=== PATIENT | male | born 1960 | race Hispanic/Latino ===

== ENCOUNTER 2018-05-05 06:16 | Inpatient (IN) | payer MEDICARE ==
[2018-04-29 10:55] VITALS: BMI 35.4
[2018-05-05] MEDS ORDERED: Rocuronium 10 mg/ml (5 ml) ONE ×2 (07:03→09:07)
[2018-05-05] MEDS ORDERED: Propofol 10 mg/ml Inj (20 ML) ONE ×3 (07:03→07:58)
[2018-05-05] MEDS ORDERED: Lidocaine 4% (Laryng-O-Jet) Kit MM ONE (07:04)
[2018-05-05] MEDS ORDERED: Succinylcholine 200 mg/10 ml Inj IV ONE (07:04)
[2018-05-05] MEDS ORDERED: Phenylephrine 10 mg/ml Inj ONE ×2 (07:04→07:10)
[2018-05-05] MEDS ORDERED: Dexamethasone 4 mg/1 ml ONE (07:12)
--- NOTE | 2018-05-05 07:14 | CP.PCM.CON ---
History of Present Illness - History of Present Illness History of Present Illness: Neurosurgical consult: Dr. Rodriguez Patient 58 y/o male with PMH of NIDDM, HTN and liver transplant presents for elective lumbar laminotomy. Patient has had chronic lower back pain for many years which has failed conservative management. The pain affects his daily activities. Pain is localized to lower back without radiation of pain to LE. He admits to numbness/tingling to feet related to his DM. He has had prior lumbar surgery in 1992 and 1999 following injuries. He denies saddle paresthesias/bowel or bladder incontinence/CP/SOB/N/V/D/fever/melena/dysuria. Review of Systems - Review of Systems All systems: reviewed and no additional remarkable complaints except Review of Systems: as per HPI Past Patient History - Past Medical History & Family History Past Medical History?: Yes Past Family History: Reviewed and not pertinent - Past Social History Cigar Use: Yes Alcohol: Other (former ETOH abuse) Drugs: Denies - CARDIAC Hx Cardiac Disorders: Yes Hx Hypercholesterolemia: Yes Hx Hypertension: Yes - PULMONARY Hx Respiratory Disorders: No - NEUROLOGICAL Hx Neurological Disorder: No - HEENT Hx HEENT Problems: No - RENAL Hx Chronic Kidney Disease: No - ENDOCRINE/METABOLIC Hx Endocrine Disorders: Yes Hx Diabetes Mellitus Type 2: Yes - HEMATOLOGICAL/ONCOLOGICAL Hx Blood Disorders: No - INTEGUMENTARY Hx Dermatological Problems: No - MUSCULOSKELETAL/RHEUMATOLOGICAL Hx Musculoskeletal Disorders: Yes Hx Arthritis: Yes (general) - GASTROINTESTINAL Hx Gastrointestinal Disorders: No - GENITOURINARY/GYNECOLOGICAL Hx Genitourinary Disorders: No - PSYCHIATRIC Hx Psychophysiologic Disorder: No - SURGICAL HISTORY Hx Surgeries: Yes Hx Appendectomy: Yes Hx Cataract Extraction: Yes (bilateral) Hx Cholecystectomy: Yes Hx Eye Surgery: Yes Hx Musculoskeletal Surgery: Yes (left wrist fx) Hx Orthopedic Surgery: Yes (total left hip.rita knees replaced) Other/Comment: liver transplant - ANESTHESIA Hx Anesthesia: Yes Hx Anesthesia Reactions: No Has any member of the family had a problem w/ anesthesia?: No Meds Allergies/Adverse Reactions: Allergies Allergy/AdvReac Type Severity Reaction Status Date / Time No Known Allergies Allergy Verified 05/05/18 06:45 - Medications Medications: as per med rec Physical Exam - Constitutional Appears: Well, No Acute Distress - Head Exam Head Exam: ATRAUMATIC, NORMOCEPHALIC - Eye Exam Eye Exam: EOMI, Normal appearance, PERRL - ENT Exam ENT Exam: Mucous Membranes Moist - Respiratory Exam Respiratory Exam: NORMAL BREATHING PATTERN - Cardiovascular Exam Cardiovascular Exam: +S1, +S2 - GI/Abdominal Exam GI & Abdominal Exam: Soft. absent: Tenderness Additional comments: surgical scar well healed - Back Exam Additional comments: lumbar midline tenderness old midline scar well healed, no other lesions/masses CN all intact neg clonus neg SLR b/l supine gross NVI distally - Neurological Exam Neurological exam: Alert, Oriented x3 - Psychiatric Exam Psychiatric exam: Normal Affect, Normal Mood - Skin Skin Exam: Normal Color, Warm Results - Labs Result Diagrams: 05/05/18 07:20 Assessment & Plan (1) Lumbar spondylosis Assessment and Plan: -OR today for L2-3 lumbar laminotomy and fusion -NPO -Risks/benefits/alternatives explained to patient who understands and agrees to proceed with above procedure -above d/w Dr. Rodriguez in agreement Status: Acute
[2018-05-05] MEDS ORDERED: Bupivacaine 0.5% Inj(30mL) ONE (07:16)
[2018-05-05] MEDS ORDERED: APROTININ/FIBRINOGEN(TISSEEL) ONE (07:16)
[2018-05-05] MEDS ORDERED: Lidocaine 1% w Epi 1:100,000 Inj ONE (07:16)
[2018-05-05] MEDS ORDERED: methylPREDNISolone Depo 80 mg/ml Inj ONE (07:46)
[2018-05-05 07:49] LABS: BASO % 0.5 % (0.0-2.0); EOS # 0.1 K/uL (0.0-0.7); HEMOGLOBIN 12.9 g/dL (12.0-18.0); LYMPH # 0.6 K/uL (1.0-4.3); LYMPH % 7.9 % (20.0-40.0); MEAN CELL VOLUME 85.1 fl (80.0-94.0); MEAN CORPUSCULAR HEMOGLOBIN 27.9 pg (27.0-31.0); MEAN CORPUSCULAR HGB CONC 32.7 g/dL (33.0-37.0); MEAN PLATELET VOLUME 9.6 fl (7.2-11.7); MONO # 0.5 K/uL (0.0-0.8); MONO % 6.8 % (0.0-10.0); NEUT # 6.2 K/uL (1.8-7.0); NEUT % 83.8 % (50.0-75.0); NRBC % 0.1 % (0.0-0.0); PLATELET COUNT 148 K/uL (130-400); RBC 4.64 Mil/uL (4.40-5.90); RED CELL DISTRIBUTION WIDTH 15.5 % (11.5-14.5); WHITE BLOOD COUNT 7.4 K/uL (4.8-10.8)
[2018-05-05] MEDS ORDERED: Lactated Ringer's 1,000 ML IV ONE ×2 (07:50→08:00)
[2018-05-05] MEDS ORDERED: Midazolam 2 MG/2 ML VIAL ONE (07:54)
[2018-05-05] MEDS ORDERED: Neostigmine 1:1000 (1 mg/ml) Inj ONE (09:10)
[2018-05-05 09:13] LABS: LYMPHOCYTE 9 % (20-50); MONOCYTE 9 % (0-10); NEUTROPHIL 80 % (42-75); REACTIVE LYMPHOCYTES 2 % (0-0); TOTAL CELLS COUNTED 100
[2018-05-05 09:15] LABS: ANISOCYTOSIS SLIGHT; PLATELET ESTIMATE NORMAL (NORMAL)
[2018-05-05] MEDS ORDERED: Bupivacaine 0.5% 50 ML IJ ONE (09:25)
[2018-05-05] MEDS ORDERED: Sodium Chloride 0.9% 1,000 ML IV SCH (09:45)
[2018-05-05] MEDS: HYDROmorphone 0.5 mg/0.5 ml ISec IVP PRN ×3 (10:20→11:45)
[2018-05-05] MEDS: Lactated Ringer's 1,000 ML IV SCH ×2 (10:35→20:41)
--- NOTE | 2018-05-05 11:19 | PCM.SURG1 ---
Surgeon's Initial Post Op Note - Surgeon's Notes Surgeon: Jaret Rodriguez MD Casting Machine Adjuster: Frank Anthony PA-C Type of Anesthesia: General Endo Anesthesia Administered By: Sonny Lynn MD Pre-Operative Diagnosis: Lumbar spondylosis Operative Findings: L2-3 lumbar spondylosis Post-Operative Diagnosis: as above Operation Performed: L2-3 laminectomy with instrumental fusion Specimen/Specimens Removed: none Estimated Blood Loss: EBL {In ML}: 30 Blood Products Given: N/A Drains Used: Ted Hutchins (x2) Post-Op Condition: Good Date of Surgery/Procedure: 05/05/18 Time of Surgery/Procedure: 07:50
--- NOTE | 2018-05-05 15:12 | CP.PCM.HP ---
History of Present Illness - History of Present Illness History of Present Illness: 58 y/o M is admitted for evaluation and management S/P L2-3 laminectomy with instrumental fusion. Pt was seen and examined by bedside with Dr Gutierrez. Pt reports feeling well. Pt denies chills, chest pain, SOB, abdominal pain, dysuria. NKDA PMHx: HTN, vitamin D deficiency, HLD, liver transplant, DM PSHx: appendectomy, b/l cataracts removal, cholecystectomy, L wrist fracture repair, total L hip replacement and b/l knee replacement Present on Admission - Present on Admission Any Indicators Present on Admission: No Review of Systems - Constitutional Constitutional: absent: Chills, Fever - EENT Eyes: absent: Change in Vision Nose/Mouth/Throat: absent: Epistaxis, Nasal Congestion, Sore Throat, Neck Pain - Cardiovascular Cardiovascular: absent: Chest Pain, Palpitations - Respiratory Respiratory: absent: Cough, Dyspnea, Hemoptysis - Gastrointestinal Gastrointestinal: absent: Abdominal Pain, Nausea, Vomiting - Genitourinary Genitourinary: absent: Dysuria, Flank Pain, Hematuria Past Patient History - Past Medical History & Family History Past Medical History?: Yes - Past Social History Smoking Status: Former Smoker - CARDIAC Hx Cardiac Disorders: Yes Hx Hypercholesterolemia: Yes Hx Hypertension: Yes - PULMONARY Hx Respiratory Disorders: No - NEUROLOGICAL Hx Neurological Disorder: No - HEENT Hx HEENT Problems: No - RENAL Hx Chronic Kidney Disease: No - ENDOCRINE/METABOLIC Hx Endocrine Disorders: Yes Hx Diabetes Mellitus Type 2: Yes - HEMATOLOGICAL/ONCOLOGICAL Hx Blood Disorders: No - INTEGUMENTARY Hx Dermatological Problems: No - MUSCULOSKELETAL/RHEUMATOLOGICAL Hx Musculoskeletal Disorders: Yes Hx Arthritis: Yes (general) - GASTROINTESTINAL Hx Gastrointestinal Disorders: No - GENITOURINARY/GYNECOLOGICAL Hx Genitourinary Disorders: No - PSYCHIATRIC Hx Psychophysiologic Disorder: No - SURGICAL HISTORY Hx Surgeries: Yes Hx Appendectomy: Yes Hx Cataract Extraction: Yes (bilateral) Hx Cholecystectomy: Yes Hx Eye Surgery: Yes Hx Musculoskeletal Surgery: Yes (left wrist fx) Hx Orthopedic Surgery: Yes (total left hip.rita knees replaced) - ANESTHESIA Hx Anesthesia: Yes Hx Anesthesia Reactions: No Has any member of the family had a problem w/ anesthesia?: No Meds Allergies/Adverse Reactions: Allergies Allergy/AdvReac Type Severity Reaction Status Date / Time No Known Allergies Allergy Verified 05/05/18 06:45 Physical Exam - Constitutional Appears: Well, No Acute Distress - Head Exam Head Exam: ATRAUMATIC, NORMAL INSPECTION - Eye Exam Eye Exam: EOMI - ENT Exam ENT Exam: Mucous Membranes Dry - Neck Exam Neck exam: Positive for: Full Rom. Negative for: Lymphadenopathy, Meningismus - Respiratory Exam Respiratory Exam: NORMAL BREATHING PATTERN. absent: Decreased Breath Sounds, Rhonchi, Wheezes - Cardiovascular Exam Cardiovascular Exam: +S1, +S2 - GI/Abdominal Exam GI & Abdominal Exam: Normal Bowel Sounds, Soft. absent: Guarding, Hernia, Tenderness - Extremities Exam Extremities exam: Negative for: calf tenderness - Back Exam Back exam: absent: CVA tenderness (L), CVA tenderness (R) - Neurological Exam Neurological exam: Alert, Oriented x3 Results - Vital Signs Recent Vital Signs: Last Vital Signs Temp 99.5 F 05/05/18 12:35 Pulse 71 05/05/18 13:05 Resp 19 05/05/18 13:05 BP 123/54 L 05/05/18 13:05 Pulse Ox 96 05/05/18 13:05 - Labs Result Diagrams: 05/05/18 07:20 Labs: Laboratory Results - last 24 hr 05/05/18 05/05/18 05/05/18 07:15 07:20 07:20 WBC 7.4 RBC 4.64 Hgb 12.9 Hct 39.5 MCV 85.1 MCH 27.9 MCHC 32.7 L RDW 15.5 H Plt Count 148 MPV 9.6 Neut % (Auto) 83.8 H Lymph % (Auto) 7.9 L [place] % (Auto) 6.8 Eos % (Auto) 1.0 Baso % (Auto) 0.5 Neut # (Auto) 6.2 Lymph # (Auto) 0.6 L [place] # (Auto) 0.5 Eos # (Auto) 0.1 Baso # (Auto) 0.0 Neutrophils % (Manual) 80 H Lymphocytes % (Manual) 9 L Reactive Lymphs % 2 H Monocytes % (Manual) 9 Platelet Estimate Normal Anisocytosis (manual) Slight POC Glucose (mg/dL) 191 H Blood Type A POSITIVE Blood Type Confirm Antibody Screen Negative BBK History Checked No verified bt 05/05/18 10:00 WBC RBC Hgb Hct MCV MCH MCHC RDW Plt Count MPV Neut % (Auto) Lymph % (Auto) [place] % (Auto) Eos % (Auto) Baso % (Auto) Neut # (Auto) Lymph # (Auto) [place] # (Auto) Eos # (Auto) Baso # (Auto) Neutrophils % (Manual) Lymphocytes % (Manual) Reactive Lymphs % Monocytes % (Manual) Platelet Estimate Anisocytosis (manual) POC Glucose (mg/dL) Blood Type Blood Type Confirm A POSITIVE Antibody Screen BBK History Checked Assessment & Plan - Assessment and Plan (Free Text) Assessment: 58 y/o M is admitted for evaluation and management S/P L2-3 laminectomy with instrumental fusion. PLAN: --Stable --Home meds resumed --Orthopedic Surgery ob board, Dr Rodriguez. --Continue management as ordered. Case discussed with Dr Gutierrez. - Date & Time Date: 05/05/18 Time: 15:15
--- NOTE | 2018-05-05 15:46 | RAD ---
Date of service: 05/05/2018 PROCEDURE: Intraoperative Fluoroscopy. The HISTORY: PLIF FINDINGS: Fluoroscopic assistance was provided. Fluoroscopy time = 88.8 sec. Radiation dose = 71.89 mGy. Please refer to the operative report from LYLE Soni.
[2018-05-05] MEDS: ceFAZolin 2 GM in Sodium Chloride 0.9% 100 ML IVPB SCH (17:00)
[2018-05-05] MEDS ORDERED: Insulin Regular 100 units/ml SC STA (17:37)
[2018-05-05] MEDS: Insulin Regular 100 units/ml SC SCH (23:25)
[2018-05-06] MEDS: ceFAZolin 2 GM in Sodium Chloride 0.9% 100 ML IVPB SCH ×3 (00:44→18:21)
[2018-05-06] MEDS: Albuterol-Ipratrop 3 mg / 0.5 (3 ml) UD INH SCH ×4 (01:44→19:18)
--- NOTE | 2018-05-06 01:50 | OP ---
PROCEDURE DATE: 05/05/2018 PREOPERATIVE DIAGNOSIS: Lumbar spondylosis at L2-L3. POSTOPERATIVE DIAGNOSIS: Lumbar spondylosis at L2-L3. PROCEDURE: L2-L3 lumbar laminectomy, L2-L3 pedicle screw fixation and instrumentation using spinal element screws, L2-L3 posterolateral fusion. Fluoroscope has been used. Microscope has been used. SURGEON: Jaret Rodriguez MD FARM SPECIALIST: Frank Anthony, physician physician's assistant, who helped me to perform the surgery, stayed throughout the case from beginning to the end. DESCRIPTION OF PROCEDURE: The patient was brought to the operating room and after general endotracheal anesthesia, placed in the prone position on a Ted table. Care was taken to protect all pressure points. Back of the lumbar area was thoroughly prepped and draped in standard sterile manner after marking the skin incision for lumbar laminectomy at L2-L3. After prepping and draping the area, the skin had been incised. Bleeding skin had been controlled with bipolar foreign diplomat. Using a Bovie foreign diplomat, paraspinal muscles had been detached attachments of spinous process and lamina of L2-L3 bilaterally. Deep retractor had been applied. Once the transverse process and facets had been exposed by using a potential landmark, point of entry had been noted for the L2 and L3. Initially a K-wire and later a drill had been used in order to enter the pedicles of L2 and L3, and bone was found to be soft. Polyaxial titanium screws had been placed in the pedicles of L2-L3. Titanium rods had been placed. Cap nuts had been used now to secure them. After that, the spinous process of L2 and L3 had been removed. By using a high speed drill, the lamina had been drilled to actual thickness. By using a fine Kerrison punch, thinned out the lamina and medial part of the facets, ligamentum flavum had been removed decomposing this area. Lateral aspect of the facet joint and transverse process had been decorticated. Demineralized bone was placed in the area achieving a posterolateral fusion. After that, hemostasis was best achieved. Ted drain was placed in the wound and brought out through a separate stab neck skin incision. Muscles and fascia were closed with 1 Vicryl, subcutaneous tissue with 3-0 Vicryl and the skin had been with intradermal 3-0 Vicryl stitches. The patient tolerated the procedure. After the procedure, he was mobilized to the recovery room in stabilized condition. Jaret Rodriguez MD
[2018-05-06] MEDS: guaiFENesin DM 200 mg-20 mg/10 ml UD PO SCH ×4 (05:35→21:40)
[2018-05-06] MEDS: Lactated Ringer's 1,000 ML IV SCH (05:45)
[2018-05-06 06:27] LABS: HEMOGLOBIN 11.3 g/dL (12.0-18.0); MEAN CELL VOLUME 84.3 fl (80.0-94.0); MEAN CORPUSCULAR HEMOGLOBIN 27.9 pg (27.0-31.0); MEAN CORPUSCULAR HGB CONC 33.1 g/dL (33.0-37.0); RBC 4.06 Mil/uL (4.40-5.90); WHITE BLOOD COUNT 8.7 K/uL (4.8-10.8)
[2018-05-06 06:32] LABS: BLOOD UREA NITROGEN 24 mg/dl (9-20); CALCIUM 7.8 mg/dL (8.4-10.2); GFR NON-AFRICAN AMERICAN > 60
[2018-05-06] MEDS: Insulin Regular 100 units/ml SC SCH ×4 (08:01→22:00)
--- NOTE | 2018-05-06 08:54 | CP.PCM.PN ---
Subjective - Date & Time of Evaluation Date of Evaluation: 05/06/18 Time of Evaluation: 08:47 - Subjective Subjective: Patient states pain is controlled. He says he is having some pain in his legs. He wants to get out of bed. Patricia CP/SOB/dizziness. Objective - Vital Signs/Intake and Output Vital Signs (last 24 hours): Temp Pulse Resp BP Pulse Ox 98.4 F 67 20 134/81 96 05/06/18 05:00 05/06/18 08:41 05/06/18 05:00 05/06/18 08:41 05/06/18 05:00 Intake and Output: 05/06/18 05/06/18 06:59 18:59 Intake Total 1600 Output Total 1610 Balance -10 - Medications Medications: Current Medications Albuterol/Ipratropium (Duoneb 3 Mg/0.5 Mg (3 Ml) Ud) 3 ml INH RQ6 [facility] Last Admin: 05/06/18 07:22 Dose: 3 ml Amlodipine Besylate (Norvasc) 5 mg PO DAILY [facility] Last Admin: 05/06/18 08:41 Dose: 5 mg Aspirin (Ecotrin) 81 mg PO DAILY [facility] Last Admin: 05/06/18 08:41 Dose: 81 mg Atorvastatin Calcium (Lipitor) 20 mg PO DAILY [facility] Last Admin: 05/06/18 08:41 Dose: 20 mg Carvedilol (Coreg) 25 mg PO DAILY [facility] Last Admin: 05/06/18 08:40 Dose: 25 mg Cyclobenzaprine HCl (Flexeril) 10 mg PO Q8 PRN PRN Reason: Muscle spasm Docusate Sodium (Colace) 100 mg PO BID [facility] Last Admin: 05/06/18 08:40 Dose: 100 mg Fludrocortisone Acetate (Florinef) 0.1 mg PO DAILY [facility] Last Admin: 05/06/18 08:41 Dose: 0.1 mg Guaifenesin/Dextromethorphan (Robitussin Dm) 10 ml PO Q6 [facility] Last Admin: 05/06/18 05:35 Dose: 10 ml Hydromorphone HCl (Dilaudid 0.2 Mg/Ml [employer]) 0 mg IV PRN PRN; Protocol PRN Reason: Pain, moderate (4-7) Last Admin: 05/05/18 22:01 Dose: 6 mg Sodium Chloride (Sodium Chloride 0.9%) 1,000 mls @ 100 mls/hr IV .Q10H [facility] Stop: 05/06/18 09:32 Last Admin: 05/06/18 05:44 Dose: 100 mls/hr Lactated Ringer's (Lactated Ringer's) 1,000 mls @ 100 mls/hr IV .Q10H [facility] Last Admin: 05/06/18 05:45 Dose: Not Given Insulin Human Regular (Humulin R) 0 units SC ACHS [facility]; Protocol Last Admin: 05/06/18 08:01 Dose: 3 u Lactulose (Enulose) 20 gm PO DAILY [facility] Last Admin: 05/06/18 08:46 Dose: Not Given Mycophenolate Mofetil (Cellcept) 500 mg PO BID [facility] Last Admin: 05/06/18 08:40 Dose: 500 mg Ondansetron HCl (Zofran Inj) 4 mg IVP ONCE PRN PRN Reason: Nausea/Vomiting Pregabalin (Lyrica) 200 mg PO DAILY [facility] Sitagliptin Phosphate (Januvia) 100 mg PO DAILY [facility] Last Admin: 05/06/18 08:41 Dose: 100 mg Tacrolimus (Prograf Cap) 1 mg PO Q12 [facility] Last Admin: 05/06/18 08:42 Dose: 1 mg Zolpidem Tartrate (Ambien) 10 mg PO HS [facility] Last Admin: 05/06/18 02:11 Dose: 10 mg - Labs Labs: 05/06/18 05:40 05/06/18 05:40 - Back Exam Additional comments: 20cc overnight both JPs 20/50 20/65 20/60 basically q2-3 hours after received from pACU, drains left intact no drainage on dressing no erythema +ROM ankle/toes,sensation intact BLE, calves soft NT neg homans Assessment and Plan (1) Lumbar spondylosis Assessment & Plan: POD#1 s/p L2/L3 lumbar laminectomy with pedicle screw fixation and fusion Sherif left intact PT/OT encourage OOB plan for d/c SHERIF when drainage decreases d/w Dr. Rodriguez, agrees with above Status: Acute
[2018-05-06] MEDS ORDERED: oxyCODONE 10 mg Immediate Release Tab PO PRN ×2 (11:39→15:12)
--- NOTE | 2018-05-06 13:14 | PQF ---
PROVIDER RESPONSE TEXT: Other, Pt was NPO due to upcoming surgery, did not take his medications. REVIEWER QUERY TEXT: Diabetic Associated Manifestations Please specify any manifestations associated / due to diabetes Such as: -- Diabetes with hyperglycemia -- Diabetes with hypoglycemia -- Diabetes with renal manifestation -- Diabetes with neurologic manifestation -- Diabetes with ophthalmic manifestation -- Diabetes with peripheral circulatory manifestation -- Other, please specify The patient's Clinical Indicators include: Accuchecks monitored with insulin coverage: 191, 184, 268, 224, 204, 212. Medication: Francisuvranjith Query created by: Cassie Villanueva on 05/06/2018 8:24 AM Electronically signed by: Gamaliel Babin 05/06/2018 1:11 PM
[2018-05-06] MEDS ORDERED: oxyCODONE 5 mg Immediate Release Tab PO STA (15:07)
--- NOTE | 2018-05-06 16:34 | CP.PCM.PN ---
Subjective - Date & Time of Evaluation Date of Evaluation: 05/06/18 Time of Evaluation: 11:25 - Subjective Subjective: 58 y/o M was seen and examined at bedside with Dr Gutierrez. Pt reports feeling well, only complains of abdominal distension; however, declines PO Lactulose and would like to wait to have a BM by himself. Pt afebrile, tolerating PO with NO acute events overnight. --Pt with Hx of chronic pain complained of back pain after oxycodone intake. Pt reports he takes 15mg Oxycontin BID at home. Objective - Vital Signs/Intake and Output Vital Signs (last 24 hours): Temp Pulse Resp BP Pulse Ox 98.4 F 67 20 134/81 96 05/06/18 09:00 05/06/18 09:00 05/06/18 09:00 05/06/18 09:00 05/06/18 09:00 Intake and Output: 05/06/18 05/06/18 06:59 18:59 Intake Total 1600 Output Total 1610 Balance -10 - Medications Medications: Current Medications Albuterol/Ipratropium (Duoneb 3 Mg/0.5 Mg (3 Ml) Ud) 3 ml INH RQ6 [facility] Last Admin: 05/06/18 14:44 Dose: 3 ml Amlodipine Besylate (Norvasc) 5 mg PO DAILY [facility] Last Admin: 05/06/18 08:41 Dose: 5 mg Aspirin (Ecotrin) 81 mg PO DAILY [facility] Last Admin: 05/06/18 08:41 Dose: 81 mg Atorvastatin Calcium (Lipitor) 20 mg PO DAILY [facility] Last Admin: 05/06/18 08:41 Dose: 20 mg Carvedilol (Coreg) 25 mg PO DAILY [facility] Last Admin: 05/06/18 08:40 Dose: 25 mg Cyclobenzaprine HCl (Flexeril) 10 mg PO Q8 PRN PRN Reason: Muscle spasm Last Admin: 05/06/18 15:09 Dose: 10 mg Docusate Sodium (Colace) 100 mg PO BID [facility] Last Admin: 05/06/18 08:40 Dose: 100 mg Fludrocortisone Acetate (Florinef) 0.1 mg PO DAILY [facility] Last Admin: 05/06/18 08:41 Dose: 0.1 mg Guaifenesin/Dextromethorphan (Robitussin Dm) 10 ml PO Q6 [facility] Last Admin: 05/06/18 09:12 Dose: 10 ml Lactated Ringer's (Lactated Ringer's) 1,000 mls @ 100 mls/hr IV .Q10H [facility] Last Admin: 05/06/18 05:45 Dose: Not Given Cefazolin Sodium 2 gm/ Sodium (Chloride) 100 mls @ 100 mls/hr IVPB Q8 [facility]; Protocol Insulin Human Regular (Humulin R) 0 units SC ACHS [facility]; Protocol Last Admin: 05/06/18 13:59 Dose: 3 u Lactulose (Enulose) 20 gm PO DAILY [facility] Last Admin: 05/06/18 08:46 Dose: Not Given Mycophenolate Mofetil (Cellcept) 500 mg PO BID [facility] Last Admin: 05/06/18 08:40 Dose: 500 mg Ondansetron HCl (Zofran Inj) 4 mg IVP ONCE PRN PRN Reason: Nausea/Vomiting Oxycodone HCl (Oxycontin Extended Release Tab) 10 mg PO Q12 [facility] Stop: 05/09/18 21:01 Oxycodone HCl (Oxycodone Immediate Release Tab) 5 mg PO Q8 PRN PRN Reason: Pain, severe (8-10) Pregabalin (Lyrica) 200 mg PO DAILY [facility] Last Admin: 05/06/18 09:12 Dose: 200 mg Senna/Docusate Sodium (Senokot S 50 Mg-8.6 Mg) 2 tab PO [facility] Sitagliptin Phosphate (Januvia) 100 mg PO DAILY [facility] Last Admin: 05/06/18 08:41 Dose: 100 mg Tacrolimus (Prograf Cap) 1 mg PO Q12 [facility] Last Admin: 05/06/18 08:42 Dose: 1 mg Zolpidem Tartrate (Ambien) 10 mg PO [facility] Last Admin: 05/06/18 02:11 Dose: 10 mg - Labs Labs: 05/06/18 05:40 05/06/18 05:40 - Additional Findings Additional findings: - Constitutional Appears: Well, No Acute Distress - Head Exam Head Exam: ATRAUMATIC, NORMAL INSPECTION - Eye Exam Eye Exam: EOMI - ENT Exam ENT Exam: Mucous Membranes Dry - Neck Exam Neck exam: Positive for: Full Rom. Negative for: Lymphadenopathy, Meningismus - Respiratory Exam Respiratory Exam: NORMAL BREATHING PATTERN. absent: Decreased Breath Sounds, Rhonchi, Wheezes - Cardiovascular Exam Cardiovascular Exam: +S1, +S2 - GI/Abdominal Exam GI & Abdominal Exam: Normal Bowel Sounds, Soft. absent: Guarding, Hernia, Tenderness - Extremities Exam Extremities exam: Negative for: calf tenderness - Back Exam Back exam: absent: CVA tenderness (L), CVA tenderness (R) - Neurological Exam Neurological exam: Alert, Oriented x3 Assessment and Plan - Assessment and Plan (Free Text) Assessment: 58 y/o M is admitted for evaluation and management S/P L2-3 laminectomy with instrumental fusion. PLAN: --POD 1. --Stable --Home meds resumed. --Pain management modified. --Orthopedic Surgery ob board, Dr Rodriguez. --Will d/c upon SHERIF drainage decreases. --Continue management as ordered. Case discussed with Dr Gutierrez.
[2018-05-06] MEDS: oxyCODONE 5 mg Immediate Release Tab PO PRN (18:18)
[2018-05-06] MEDS: oxyCODONE 10 mg ER Tab (oxyCONTIN) PO SCH (21:38)
[2018-05-06] MEDS: Docusate-Senna 50 mg-8.6 mg Tab PO SCH (21:45)
[2018-05-06] MEDS ORDERED: guaiFENesin DM 200 mg-20 mg/10 ml UD PO SCH (22:27)
[2018-05-06] MEDS ORDERED: Albuterol-Ipratrop 3 mg / 0.5 (3 ml) UD INH SCH (22:28)
[2018-05-07] MEDS: ceFAZolin 2 GM in Sodium Chloride 0.9% 100 ML IVPB SCH ×2 (00:22→09:20)
[2018-05-07] MEDS: Albuterol-Ipratrop 3 mg / 0.5 (3 ml) UD INH SCH ×4 (00:59→19:07)
[2018-05-07] MEDS: Lactated Ringer's 1,000 ML IV SCH (01:00)
[2018-05-07] MEDS: guaiFENesin DM 200 mg-20 mg/10 ml UD PO SCH ×4 (03:51→21:01)
[2018-05-07] MEDS: oxyCODONE 5 mg Immediate Release Tab PO PRN ×2 (03:53→16:42)
[2018-05-07 06:29] LABS: HEMOGLOBIN 10.9 g/dL (12.0-18.0); MEAN CELL VOLUME 83.3 fl (80.0-94.0); MEAN CORPUSCULAR HEMOGLOBIN 27.5 pg (27.0-31.0); RBC 3.97 Mil/uL (4.40-5.90); RED CELL DISTRIBUTION WIDTH 15.6 % (11.5-14.5); WHITE BLOOD COUNT 5.4 K/uL (4.8-10.8)
[2018-05-07 07:05] LABS: BLOOD UREA NITROGEN 18 mg/dl (9-20); CALCIUM 8.1 mg/dL (8.4-10.2); GFR NON-AFRICAN AMERICAN > 60
[2018-05-07] MEDS: oxyCODONE 10 mg ER Tab (oxyCONTIN) PO SCH ×2 (09:15→21:01)
[2018-05-07] MEDS: Insulin Regular 100 units/ml SC SCH ×4 (09:19→22:00)
--- NOTE | 2018-05-07 12:10 | CP.PCM.PN ---
Subjective - Date & Time of Evaluation Date of Evaluation: 05/07/18 Time of Evaluation: 12:08 - Subjective Subjective: Patient is feeling good today, pain is controlled. Objective - Vital Signs/Intake and Output Vital Signs (last 24 hours): Temp Pulse Resp BP Pulse Ox 98.0 F 72 20 162/93 H 98 05/07/18 08:41 05/07/18 09:22 05/07/18 08:41 05/07/18 09:22 05/07/18 08:41 Intake and Output: 05/07/18 05/07/18 06:59 18:59 Intake Total 580 Output Total 50 Balance 530 - Medications Medications: Current Medications Albuterol/Ipratropium (Duoneb 3 Mg/0.5 Mg (3 Ml) Ud) 3 ml INH RQ6 [facility] Last Admin: 05/07/18 07:44 Dose: 3 ml Amlodipine Besylate (Norvasc) 5 mg PO DAILY [facility] Last Admin: 05/07/18 09:22 Dose: 5 mg Aspirin (Ecotrin) 81 mg PO DAILY [facility] Last Admin: 05/07/18 09:22 Dose: 81 mg Atorvastatin Calcium (Lipitor) 20 mg PO DAILY [facility] Last Admin: 05/07/18 09:23 Dose: 20 mg Carvedilol (Coreg) 25 mg PO DAILY [facility] Last Admin: 05/07/18 09:21 Dose: 25 mg Cyclobenzaprine HCl (Flexeril) 10 mg PO Q8 PRN PRN Reason: Muscle spasm Last Admin: 05/06/18 15:09 Dose: 10 mg Docusate Sodium (Colace) 100 mg PO BID [facility] Last Admin: 05/07/18 09:22 Dose: 100 mg Fludrocortisone Acetate (Florinef) 0.1 mg PO DAILY [facility] Last Admin: 05/07/18 09:23 Dose: 0.1 mg Guaifenesin/Dextromethorphan (Robitussin Dm) 10 ml PO Q6 [facility] Last Admin: 05/07/18 10:02 Dose: 10 ml Lactated Ringer's (Lactated Ringer's) 1,000 mls @ 100 mls/hr IV .Q10H [facility] Last Admin: 05/07/18 01:00 Dose: Not Given Cefazolin Sodium 2 gm/ Sodium (Chloride) 100 mls @ 100 mls/hr IVPB Q8 [facility]; Protocol Last Admin: 05/07/18 09:20 Dose: 100 mls/hr Insulin Human Regular (Humulin R) 0 units SC ACHS [facility]; Protocol Last Admin: 05/07/18 09:19 Dose: 2 u Lactulose (Enulose) 20 gm PO DAILY [facility] Last Admin: 05/07/18 09:23 Dose: Not Given Mycophenolate Mofetil (Cellcept) 500 mg PO BID [facility] Last Admin: 05/07/18 09:22 Dose: 500 mg Ondansetron HCl (Zofran Inj) 4 mg IVP ONCE PRN PRN Reason: Nausea/Vomiting Oxycodone HCl (Oxycontin Extended Release Tab) 10 mg PO Q12 [facility] Stop: 05/09/18 21:01 Last Admin: 05/07/18 09:15 Dose: 10 mg Oxycodone HCl (Oxycodone Immediate Release Tab) 5 mg PO Q8 PRN PRN Reason: Pain, severe (8-10) Last Admin: 05/07/18 03:53 Dose: 5 mg Pregabalin (Lyrica) 200 mg PO DAILY [facility] Last Admin: 05/07/18 09:15 Dose: 200 mg Senna/Docusate Sodium (Senokot S 50 Mg-8.6 Mg) 2 tab PO [facility] Last Admin: 05/06/18 21:45 Dose: Not Given Sitagliptin Phosphate (Januvia) 100 mg PO DAILY [facility] Last Admin: 05/07/18 09:23 Dose: 100 mg Tacrolimus (Prograf Cap) 1 mg PO Q12 [facility] Last Admin: 05/07/18 09:23 Dose: 1 mg Zolpidem Tartrate (Ambien) 10 mg PO [facility] Last Admin: 05/07/18 00:21 Dose: 10 mg - Labs Labs: 05/07/18 05:20 05/07/18 05:20 - Back Exam Additional comments: L and R drains 15cc in <3 hours, both with >50 last 24 hours, left intact +ROM ankle/toes, sensation intact, sitting on edge of bed NAD calves soft Nt neg homans Assessment and Plan (1) Lumbar spondylosis Assessment & Plan: POD#2 s/p L2/L3 lumbar laminectomy with pedicle screw fixation and fusion Sherif left intact PT/OT encourage OOB plan for d/c SHERIF when drainage decreases d/w Dr. Rodriguez, agrees with above Status: Acute
--- NOTE | 2018-05-07 16:28 | CP.PCM.PN ---
Subjective - Date & Time of Evaluation Date of Evaluation: 05/07/18 Time of Evaluation: 10:45 - Subjective Subjective: 58 y/o M was seen and examined at bedside with Dr Gutierrez. Pt reports feeling well. SHERIF drainage still in place. Pt afebrile, tolerating PO with NO acute events overnight. Objective - Vital Signs/Intake and Output Vital Signs (last 24 hours): Temp Pulse Resp BP Pulse Ox 98.0 F 72 20 162/93 H 98 05/07/18 08:41 05/07/18 09:22 05/07/18 08:41 05/07/18 09:22 05/07/18 08:41 Intake and Output: 05/07/18 05/07/18 06:59 18:59 Intake Total 580 Output Total 50 Balance 530 - Medications Medications: Current Medications Albuterol/Ipratropium (Duoneb 3 Mg/0.5 Mg (3 Ml) Ud) 3 ml INH RQ6 [facility] Last Admin: 05/07/18 13:37 Dose: 3 ml Amlodipine Besylate (Norvasc) 5 mg PO DAILY [facility] Last Admin: 05/07/18 09:22 Dose: 5 mg Aspirin (Ecotrin) 81 mg PO DAILY [facility] Last Admin: 05/07/18 09:22 Dose: 81 mg Atorvastatin Calcium (Lipitor) 20 mg PO DAILY [facility] Last Admin: 05/07/18 09:23 Dose: 20 mg Carvedilol (Coreg) 25 mg PO DAILY [facility] Last Admin: 05/07/18 09:21 Dose: 25 mg Cyclobenzaprine HCl (Flexeril) 10 mg PO Q8 PRN PRN Reason: Muscle spasm Last Admin: 05/06/18 15:09 Dose: 10 mg Docusate Sodium (Colace) 100 mg PO BID [facility] Last Admin: 05/07/18 09:22 Dose: 100 mg Fludrocortisone Acetate (Florinef) 0.1 mg PO DAILY [facility] Last Admin: 05/07/18 09:23 Dose: 0.1 mg Guaifenesin/Dextromethorphan (Robitussin Dm) 10 ml PO Q6 [facility] Last Admin: 05/07/18 10:02 Dose: 10 ml Insulin Human Regular (Humulin R) 0 units SC [facility]; Protocol Last Admin: 05/07/18 13:06 Dose: 2 u Lactulose (Enulose) 20 gm PO DAILY [facility] Last Admin: 05/07/18 09:23 Dose: Not Given Mycophenolate Mofetil (Cellcept) 500 mg PO BID [facility] Last Admin: 05/07/18 09:22 Dose: 500 mg Ondansetron HCl (Zofran Inj) 4 mg IVP ONCE PRN PRN Reason: Nausea/Vomiting Oxycodone HCl (Oxycontin Extended Release Tab) 10 mg PO Q12 [facility] Stop: 05/09/18 21:01 Last Admin: 05/07/18 09:15 Dose: 10 mg Oxycodone HCl (Oxycodone Immediate Release Tab) 5 mg PO Q8 PRN PRN Reason: Pain, severe (8-10) Last Admin: 05/07/18 03:53 Dose: 5 mg Pregabalin (Lyrica) 200 mg PO DAILY [facility] Last Admin: 05/07/18 09:15 Dose: 200 mg Senna/Docusate Sodium (Senokot S 50 Mg-8.6 Mg) 2 tab PO [facility] Last Admin: 05/06/18 21:45 Dose: Not Given Sitagliptin Phosphate (Januvia) 100 mg PO DAILY [facility] Last Admin: 05/07/18 09:23 Dose: 100 mg Tacrolimus (Prograf Cap) 1 mg PO Q12 [facility] Last Admin: 05/07/18 09:23 Dose: 1 mg Zolpidem Tartrate (Ambien) 10 mg PO [facility] Last Admin: 05/07/18 00:21 Dose: 10 mg - Labs Labs: 05/07/18 05:20 05/07/18 05:20 - Additional Findings Additional findings: - Constitutional Appears: Well, No Acute Distress - Head Exam Head Exam: ATRAUMATIC, NORMAL INSPECTION - Eye Exam Eye Exam: EOMI - ENT Exam ENT Exam: Mucous Membranes Dry - Neck Exam Neck exam: Positive for: Full Rom. Negative for: Lymphadenopathy, Meningismus - Respiratory Exam Respiratory Exam: NORMAL BREATHING PATTERN. absent: Decreased Breath Sounds, Rhonchi, Wheezes - Cardiovascular Exam Cardiovascular Exam: +S1, +S2 - GI/Abdominal Exam GI & Abdominal Exam: Normal Bowel Sounds, Soft. absent: Guarding, Hernia, Tenderness - Extremities Exam Extremities exam: Negative for: calf tenderness - Back Exam Back exam: absent: CVA tenderness (L), CVA tenderness (R) - Neurological Exam Neurological exam: Alert, Oriented x3 Assessment and Plan - Assessment and Plan (Free Text) Assessment: 58 y/o M is admitted for evaluation and management S/P L2-3 laminectomy with instrumental fusion. PLAN: --POD 2. --Stable --SHERIF still draining, clean and intact. --Orthopedic Surgery on board, Dr Rodriguez. --Continue with physical therapy. --Continue management as ordered. Case discussed with Dr Gutierrez who agrees with the above HARISH Beckman PGY-2
[2018-05-07] MEDS: Docusate-Senna 50 mg-8.6 mg Tab PO SCH ×2 (21:01→21:11)
[2018-05-08] MEDS: Albuterol-Ipratrop 3 mg / 0.5 (3 ml) UD INH SCH ×3 (01:07→13:36)
[2018-05-08] MEDS: oxyCODONE 5 mg Immediate Release Tab PO PRN (02:44)
[2018-05-08] MEDS: guaiFENesin DM 200 mg-20 mg/10 ml UD PO SCH ×2 (03:51→09:31)
[2018-05-08] MEDS: Insulin Regular 100 units/ml SC SCH ×2 (07:01→11:42)
[2018-05-08 07:49] LABS: BLOOD UREA NITROGEN 17 mg/dl (9-20); CALCIUM 8.2 mg/dL (8.4-10.2); GFR NON-AFRICAN AMERICAN > 60
[2018-05-08 07:54] LABS: MEAN CELL VOLUME 83.8 fl (80.0-94.0); MEAN CORPUSCULAR HEMOGLOBIN 27.5 pg (27.0-31.0); MEAN CORPUSCULAR HGB CONC 32.8 g/dL (33.0-37.0); RBC 4.01 Mil/uL (4.40-5.90); RED CELL DISTRIBUTION WIDTH 15.3 % (11.5-14.5); WHITE BLOOD COUNT 5.2 K/uL (4.8-10.8)
[2018-05-08 09:02] VITALS: BP 134/77; PULSE 80; RESP 19; TEMP 98; O2SAT 97
[2018-05-08] MEDS: oxyCODONE 10 mg ER Tab (oxyCONTIN) PO SCH (09:29)
== END 2018-05-08 16:50 | disposition home or self-care (01) | DRG 460 ==
LOC: H.OPSURG 06:16 → H.MEDSURG1 09:31
PROVIDERS: ADMIT Family Medicine; ATTEND Family Medicine
PROC: 0SG10K1 Fusion of 2 or more Lumbar Vertebral Joints with Nonautologous Tissue Substitute, Posterior Approach, Posterior Column, Open Approach (ICD-10-PCS; principal; 2018-05-05 07:45)
DX: M47.816 Spondylosis without myelopathy or radiculopathy, lumbar region (principal); Z94.4 Liver transplant status; I10 Essential (primary) hypertension; E11.9 Type 2 diabetes mellitus without complications; Z87.891 Personal history of nicotine dependence; E78.00 Pure hypercholesterolemia, unspecified; E78.5 Hyperlipidemia, unspecified; Z90.49 Acquired absence of other specified parts of digestive tract; Z96.642 Presence of left artificial hip joint; Z96.653 Presence of artificial knee joint, bilateral; E55.9 Vitamin D deficiency, unspecified; G89.29 Other chronic pain; Z98.42 Cataract extraction status, left eye; Z98.41 Cataract extraction status, right eye; M19.90 Unspecified osteoarthritis, unspecified site; Z79.84 Long term (current) use of oral hypoglycemic drugs; R14.0 Abdominal distension (gaseous)